=== PATIENT | female | born 1980 | race Hispanic/Latino ===

== ENCOUNTER 2018-07-27 10:13 | Outpatient (CLI) | payer OTHER ==
--- NOTE | 2018-07-27 12:18 | ULT ---
LEFT BREAST ULTRASOUND: Date: 07/27/18 HISTORY: Palpable mass at 10 o'clock position of left breast. COMPARISON: Mammogram 07/27/18. TECHNIQUE: Multiplanar Metcalf scale and color Doppler images were obtained in a targeted ultrasound at the area of palpable abnormality. FINDINGS: A small cyst is seen at the 10 o'clock position of the left breast measuring 4.0 mm in greatest dimen jairo. This is much smaller than the area of patient's palpable abnormality. Patient is likely f eeling normal appearing breast parenchyma, which is also seen in this location. No suspicious mass or suspicious shadowing is seen. IMPRESSION: BIRADS Category 2 - Benign findings. Annual screening mammography is recommended at the age of 40. POS: MYRA
== END 2018-07-27 10:14 | disposition home or self-care (01) ==
LOC: BICMAMMO 10:13
PROVIDERS: ATTEND Physician Assistant
DX: N63.20 Unspecified lump in the left breast, unspecified quadrant (principal)
CPT/HCPCS: 77066; G0279

== ENCOUNTER 2019-04-06 09:36 | Outpatient (CLI) | payer OTHER ==
--- NOTE | 2019-04-06 11:09 | MMO ---
Right Breast MAMMO Unilat Diag DDI RT+GAL. CLINICAL HISTORY: Patient is 38 years old and is seen for diagnostic exam. The patient has no family history of breast cancer. The patient has no personal history of cancer. VIEWS: The views performed were: right craniocaudal with tomosynthesis; right mediolateral oblique with tomosynthesis; and right mediolateral with tomosynthesis. FILMS COMPARED: The present examination has been compared to prior imaging studies performed at [facility] on 07/27/2018 and 04/06/2019. This study has been interpreted with the assistance of computer-aided detection. MAMMOGRAM FINDINGS: There are scattered fibroglandular densities. Finding 1: There is a stable post-surgical scar seen in the right breast. Finding 2: There is an oval mass measuring 10 millimeters with obscured margins seen in the right breast at 11 o'clock. A potentially solid mass is seen in this location sonographically. Finding 3: No mammographic abnormality in the region of palpable concern in the right breast. Sonography demonstrates benign findings. IMPRESSION: FINDING 2: MASS IN THE RIGHT BREAST IS SUSPICIOUS. AN ULTRASOUND-GUIDED BREAST BIOPSY IS RECOMMENDED. RESULTS AND RECOMMENDATIONS DISCUSSED WITH THE PATIENT AND QUESTIONS ANSWERED. FINDING 3: THERE ARE NO MAMMOGRAPHIC ABNORMALITIES IN THE AREA OF PALPABLE CONCERN. THE PATIENT IS REFERRED BACK TO HER CLINICIAN. NEGATIVE IMAGING FINDINGS SHOULD NOT PRECLUDE BIOPSY IF CLINICAL FINDINGS ARE SUSPICIOUS. THE RESULTS OF THIS EXAM WERE SENT TO THE PATIENT. ACR BI-RADS Category 4 - Suspicious abnormality - biopsy should be considered MAMMOGRAPHY NOTE: 1. A negative mammogram report should not delay a biopsy if a dominant of clinically suspicious mass is present. 2. Approximately 10% to 15% of breast cancers are not detected by mammography. 3. Adenosis and dense breasts may obscure an underlying neoplasm. Reported by: TY ZAVALA MD Electonically Signed: [id number]
--- NOTE | 2019-04-06 11:27 | ULT ---
LIMITED RIGHT BREAST ULTRASOUND: 04/06/2019 PROVIDED CLINICAL HISTORY: Right breast palpable abnormality. Abnormal mammogram. FINDINGS: The patient reports a history of prior excisional biopsy in the right breast. Stable distortion in th is region is compatible with the provided history. There is an area of post surgical scar at the 11 o 'clock position of the right breast, compatible with a history of prior excisional biopsy. Immediately adjacent to this area of scarring at the 11 o'clock position of the right breast is a cir cumscribed, heterogeneously isoechoic mass, potentially intraductal, at the 11 o'clock position, 4 cm from the nipple. This measures at least 1.2 cm in greatest dimension. At the 9 o'clock position of the right breast, in the region of palpable concern, is a dilated duct w ith associated thickening of the wall, compatible with the patient's provided history of recent masti tis. IMPRESSION: 1. The palpable abnormality corresponds to a dilated duct with mild wall thickening, compatible with the provided clinical history of recent mastitis. 2. A 1.2 cm mass at the 11 o'clock position of the right breast, the sonographic features of which ar e indeterminate. Ultrasound guided biopsy is recommended. BI-RADS category 4 - suspicious abnormality. Results and recommendations discussed with the patient and questions answered. POS: OFF
== END 2019-04-06 09:37 | disposition home or self-care (01) ==
LOC: BICMAMMO 09:36
PROVIDERS: ATTEND Family Medicine
DX: N63.11 Unspecified lump in the right breast, upper outer quadrant (principal)
CPT/HCPCS: G0279

== ENCOUNTER 2019-06-30 10:42 | Outpatient (CLI) | payer OTHER ==
--- NOTE | 2019-06-30 11:15 | MMO ---
Right Breast MAMMO Unilat Diag DDI RT. CLINICAL HISTORY: Patient is 38 years old and is seen for breast biopsy. The patient has no family history of breast cancer. The patient has no personal history of cancer. The patient has a history of right Ultrasound Guided Core Biopsy in May,. VIEWS: The views performed were: right craniocaudal and right mediolateral oblique. FILMS COMPARED: The present examination has been compared to prior imaging studies performed at [facility] on 07/27/2018 and 04/06/2019. This study has been interpreted with the assistance of computer-aided detection. MAMMOGRAM FINDINGS: There are scattered fibroglandular densities. There are two biopsy clips seen in the right breast. IMPRESSION: BIOPSY CLIPS IN THE RIGHT BREAST ARE CONFIRMED UTILIZING POST PROCEDURE MAMMOGRAM. THE RESULTS OF THIS EXAM WERE SENT TO THE PATIENT. MAMMOGRAPHY NOTE: 1. A negative mammogram report should not delay a biopsy if a dominant of clinically suspicious mass is present. 2. Approximately 10% to 15% of breast cancers are not detected by mammography. 3. Adenosis and dense breasts may obscure an underlying neoplasm. Reported by: TY ZAVALA MD Electonically Signed: [id number]
== END 2019-06-30 10:43 | disposition home or self-care (01) ==
LOC: BICMAMMO 10:42
PROVIDERS: ATTEND Specialist
DX: N63.10 Unspecified lump in the right breast, unspecified quadrant (principal)